=== PATIENT | male | born 1990 | race Caucasian/White ===

== ENCOUNTER 2016-05-25 19:08 | Emergency (ER) | payer OTHER ==
[2016-05-25] MEDS ORDERED: ASPIRIN 81 MG TABLET, CHEWABLE PO ONE (19:43)
--- NOTE | 2016-05-25 19:45 | ER Document Report ---
ED Medical Screen (RME) - General Stated Complaint: DIFFICULTY BREATHING Mode of Arrival: Ambulatory Information source: Patient Notes: Patient reports chest discomfort and difficulty breathing for the past 10 days. No cough. No fever. hx: Anxiety, depression I have greeted and performed a rapid initial assessment of this patient. A comprehensive ED assessment and evaluation of the patient, analysis of test results and completion of the medical decision making process will be conducted by additional ED providers. - Related Data Allergies/Adverse Reactions: No Known Allergies Allergy (Verified 05/25/16 19:44) Past Medical History - Immunizations Immunizations up to date: Yes Hx Diphtheria, Pertussis, Tetanus Vaccination: Yes Physical Exam - Vital signs Vitals: Temp Pulse Resp BP Pulse Ox 97.7 F 75 16 139/85 H 97 05/25/16 19:13 05/25/16 19:13 05/25/16 19:13 05/25/16 19:13 05/25/16 19:13 - Cardiovascular Rhythm: Regular Heart sounds: S1 appreciated, S2 appreciated Course - Vital Signs Vital signs: Temp Pulse Resp BP Pulse Ox 97.7 F 75 16 139/85 H 97 05/25/16 19:13 05/25/16 19:13 05/25/16 19:13 05/25/16 19:13 05/25/16 19:13
[2016-05-25 20:10] LABS: ABSOLUTE BASOPHILS # (AUTO) 0.1 10^3/uL (0.0-0.2); ABSOLUTE EOSINOPHILS # (AUTO) 0.1 10^3/uL (0.0-0.6); ABSOLUTE LYMPHOCYTES (AUTO) 2.8 10^3/uL (0.5-4.7); ABSOLUTE MONOCYTES (AUTO) 0.6 10^3/uL (0.1-1.4); ABSOLUTE NEUT (AUTO) 5.7 10^3/uL (1.7-8.2); BASOPHILS % (AUTO) 0.6 % (0-2); EOSINOPHILS % (AUTO) 1.5 % (0-6); HEMATOCRIT 48.7 % (37.9-51.0); HGB HCT DIFFERENCE 2.3; LYMPHOCYTES % (AUTO) 29.7 % (13-45); MEAN CORPUSCULAR HEMOGLOBIN 30.3 pg (27.0-33.4); MEAN CORPUSCULAR VOLUME 86 fl (80-97); MONOCYTES % (AUTO) 6.1 % (3-13); RED BLOOD COUNT 5.63 10^6/uL (4.35-5.55); RED CELL DISTRIBUTION WIDTH 13.2 % (11.5-14.0); SEGMENTED NEUTROPHILS % (AUTO) 62.1 % (42-78); WHITE BLOOD COUNT 9.3 10^3/uL (4.0-10.5)
[2016-05-25 20:15] LABS: APPEARANCE,URINE CLEAR; BILIRUBIN,URINE NEGATIVE (NEGATIVE); GLUCOSE, URINE NEGATIVE (NEGATIVE); KETONES,URINE TRACE mg/dL (NEGATIVE); LEUKOCYTE ESTERASE,URINE NEGATIVE (NEGATIVE); NITRITE,URINE NEGATIVE (NEGATIVE); PROTEIN,URINE NEGATIVE (NEGATIVE); URINE SPECIFIC GRAVITY 1.024; UROBILINOGEN,URINE NEGATIVE mg/dL (<2.0)
[2016-05-25 20:24] LABS: ALANINE AMINOTRANSFERASE 33 U/L (21-72); ALBUMIN 3.6 g/dL (3.5-5.0); ALKALINE PHOSPHATASE 85 U/L (38-126); ANION GAP 9 (5-19); ASPARTATE AMINO TRANSFERASE 21 U/L (17-59); BILIRUBIN,TOTAL 0.5 mg/dL (0.2-1.3); BLOOD UREA NITROGEN 17 mg/dL (7-20); CALCIUM 9.6 mg/dL (8.4-10.2); CARBON DIOXIDE 24 mmol/L (22-30); CHLORIDE 107 mmol/L (98-107); CREATINE KINASE 81 U/L (55-170); CREATININE RESULT 1.03 mg/dL (0.52-1.25); GLUCOSE 82 mg/dL (75-110); POTASSIUM 3.9 mmol/L (3.6-5.0); TOTAL PROTEIN 6.2 g/dL (6.3-8.2)
[2016-05-25 20:32] LABS: URINE BARBITURATES SCREEN NEGATIVE; URINE METHADONE SCREEN NEGATIVE; URINE OPIATES LOW NEGATIVE; URINE PHENCYCLIDINE SCREEN NEGATIVE
[2016-05-25 20:39] LABS: CREATINE KINASE MB 0.96 ng/mL (<4.55); TROPONIN I < 0.012 ng/mL
[2016-05-25] MEDS ORDERED: PREDNISONE 20 MG TABLET PO ONE (21:42)
[2016-05-25] MEDS ORDERED: IPRATROPIUM/ALBUTEROL 0.5-2.5 MG/3 ML AMPUL NEB ONE (21:42)
--- NOTE | 2016-05-25 21:44 | ER Document Report ---
ED Respiratory Problem - General Chief Complaint: Shortness Of Breath Stated Complaint: DIFFICULTY BREATHING Time seen by provider: 21:43 Mode of Arrival: Ambulatory Information source: Patient Notes: 26-year-old male presents to ED for shortness of breath and chest discomfort for the last 10 days. He states he has a history of asthma and his chest feels very tight and sore. He also is having some upper abdominal pain on the left states she's getting evaluated [facility] an ulcer [facility]. States this is not a problem tonight. TRAVEL OUTSIDE OF THE [place] IN LAST 30 DAYS: No - HPI Patient complains to provider of: Chest pain, Cough, Short of breath Onset: Other - 10 days Duration: Intermittent episodes Initiating Event: URI Quality of pain: Other - Sore to touch pain with cough Severity: Mild Pain Level: 2 Cough: Nonproductive Sputum amount: None Associated symptoms: Chest pain/discomfort, Cough, PND, Runny nose, Sinus pain/ pressure Similar symptoms previously: Yes Recently seen / treated by doctor: No - Related Data Allergies/Adverse Reactions: No Known Allergies Allergy (Verified 05/25/16 19:44) Past Medical History - General Information source: Patient - Social History Smoking Status: Current Some Day Smoker Cigarette use (# per day): Yes - occasionally Chew tobacco use (# tins/day): No Smoking Education Provided: Yes - less than 1 minute Frequency of alcohol use: Occasional Drug Abuse: Marijuana Occupation: none Lives with: Family Family History: CAD, Hypertension Patient has suicidal ideation: No Patient has homicidal ideation: No - Past Medical History Cardiac Medical History: Reports: None Pulmonary Medical History: Reports: None EENT Medical History: Reports: None Neurological Medical History: Reports: None Endocrine Medical History: Reports: None Renal/ Medical History: Reports: None Malignancy Medical History: Reports None GI Medical History: Reports: Hx Gastroesophageal Reflux Disease, Hx Ulcer Musculoskeltal Medical History: Reports Hx Musculoskeletal Deformity, Reports Hx Musculoskeletal Trauma Skin Medical History: Reports None Psychiatric Medical History: Reports: Hx Anxiety, Hx Depression Traumatic Medical History: Reports: None Infectious Medical History: Reports: None Past Surgical History: Reports: Hx Orthopedic Surgery - Right shoulder - Immunizations Immunizations up to date: Yes Hx Diphtheria, Pertussis, Tetanus Vaccination: Yes Review of Systems - Review of Systems Constitutional: Fever, Recent illness EENT: Nose discharge, Sinus discharge Cardiovascular: No symptoms reported Respiratory: Cough - States that he has coughed some Gastrointestinal: Nausea, Vomiting Genitourinary: No symptoms reported Male Genitourinary: No symptoms reported Musculoskeletal: Muscle pain Skin: No symptoms reported Hematologic/Lymphatic: No symptoms reported Neurological/Psychological: No symptoms reported -: Yes All other systems reviewed and negative Physical Exam - Vital signs Vitals: Temp Pulse Resp BP Pulse Ox 97.7 F 75 16 139/85 H 97 05/25/16 19:13 05/25/16 19:13 05/25/16 19:13 05/25/16 19:13 05/25/16 19:13 Interpretation: Normal - General General appearance: Appears well, Alert - HEENT Head: Normocephalic, Atraumatic Eyes: Normal Pupils: PERRL Ears: Normal External canal: Normal Tympanic membrane: Normal Sinus: Normal Nasal: Purulent discharge, Swelling Mouth/Lips: Normal Mucous membranes: Normal Pharynx: Post nasal drainage Neck: Normal - Respiratory Respiratory status: No respiratory distress Chest status: Tender. No: Pain on movement, Pain with cough, Pain with deep breathing Breath sounds: Normal Chest palpation: Normal - Cardiovascular Rhythm: Regular Heart sounds: Normal auscultation Murmur: No - Abdominal Inspection: Normal Distension: No distension Bowel sounds: Normal Tenderness: Nontender Organomegaly: No organomegaly - Back Back: Normal, Nontender - Extremities General upper extremity: Normal inspection, Nontender, Normal color, Normal ROM , Normal temperature General lower extremity: Normal inspection, Nontender, Normal color, Normal ROM , Normal temperature, Normal weight bearing. No: Kodak's sign - Neurological Neuro grossly intact: Yes Cognition: Normal Orientation: AAOx4 Ginger Coma Scale Eye Opening: Spontaneous [place] Coma Scale Verbal: Oriented [place] Coma Scale Motor: Obeys Commands Ginger Coma Scale Total: 15 Speech: Normal Motor strength normal: LUE, RUE, LLE, RLE Sensory: Normal - Psychological Associated symptoms: Normal affect, Normal mood - Skin Skin Temperature: Warm Skin Moisture: Dry Skin Color: Normal Course - Re-evaluation Re-evalutation: 05/26/16 07:58 Discussed chest x-ray and lab results with patient patient discharged home to follow-up with his primary doctor patient encouraged to use Tylenol or Motrin for his discomfort. Patient was given 1 DuoNeb with prednisone as stated that his discomfort was relieved stated he did not want to be albuterol DuoNeb she was ready to go home. Patient discharged home with prescriptions for prednisone and albuterol inhaler. - Vital Signs Vital signs: Temp Pulse Resp BP Pulse Ox 97.5 F 52 L 18 111/69 98 05/25/16 23:00 05/25/16 23:00 05/25/16 23:00 05/25/16 23:00 05/25/16 23:00 - Laboratory Result Diagrams: 05/25/16 19:50 05/25/16 19:50 Laboratory results interpreted by me: 05/25/16 05/25/16 05/25/16 19:50 19:50 19:50 RBC 5.63 H Total Protein 6.2 L Urine Ketones TRACE H - Diagnostic Test Radiology reviewed: Image reviewed, Reports reviewed Discharge - Discharge Clinical Impression: Chest pain Qualifiers: Chest pain type: unspecified Qualified Code(s): R07.9 - Chest pain, unspecified URI (upper respiratory infection) Qualifiers: URI type: unspecified URI Qualified Code(s): J06.9 - Acute upper respiratory infection, unspecified Condition: Stable Disposition: HOME, SELF-CARE Additional Instructions: UPPER RESPIRATORY ILLNESS: You have a viral infection of the respiratory passages -- a "cold." This common infection causes nasal congestion, drainage, and often sore throat and cough. It is highly contagious. The disease usually lasts about 10 to 14 days. There is no "cure" for the viral infection -- it must run its course. If there is a complication, such as bacterial infection in the nose, sinuses, middle ear, or bronchial tubes, antibiotics may be required. The antibiotics won't affect the virus. Drink plenty of fluids. A humidifier may help. An expectorant medication or decongestant may make you more comfortable. Use acetaminophen or ibuprofen for fever or aches. See the doctor if fever persists over two days, if there is any significant worsening of your symptoms, or if you simply fail to improve as expected. BRONCHOSPASM: You have tightness in the bronchial tubes, called bronchospasm. This often occurs with bronchial infections. Allergies, inhaled chemicals, and polluted or cold air can also provoke bronchospasm. It's more likely in patients with asthma in the family. Emergency treatment of bronchospasm may include adrenaline shots or bronchodilator aerosol. You may feel lightheaded and have a rapid pulse for an hour or two. Rest and get plenty of fluids. At home, we'll treat you with a bronchodilator inhaler. Antibiotics and corticosteroids may be required for some patients. Until you recover, avoid chemical fumes, dusts, pollens, and exercising in very cold or dry air. If you smoke, stop now!! If you develop a fever, increased wheezing, chest pain, or severe shortness of breath, you should contact the doctor immediately. CHEST PAIN OF UNCLEAR CAUSE: The exact cause of your chest pain isn't clear. Fortunately, there is no evidence of a dangerous medical condition. Further testing may be required to find the source of the pain. Most often, we find that this pain is coming from the chest wall -- the muscles or rib joints in the chest. But chest pain can come from the lung and lung lining, the esophagus, the heart valves or heart lining, and even the stomach or gallbladder. Rest. Eat lightly until the pain is gone. We may prescribe medicine for pain and inflammation. You should call the physician immediately if the pain radiates to the shoulder, jaw or arms; if you start to run a fever or develop a cough; or if you develop shortness of breath, or other new or alarming symptoms. NORMAL EXAM AND WORKUP: At this time, your examination and workup show no significant abnormality. No significant abnormal physical findings were noted. All laboratory, EKG, and imaging (x-ray, CT scans, ultrasound) studies that were ordered show no significant abnormality. Although your examination and all studies that were ordered showed no significant abnormal finding, there are no examinations and no studies that are 100% accurate. There is always the possibility that some abnormality could exist and not be detected with physical examination or within the limits and capabilities of laboratory and other studies. You should return or follow up as you were instructed on your visit today for further evaluation if your symptoms do not resolve. CHEST WALL PAIN: Your chest pain may be coming from the chest wall. This is often caused by straining the muscles or joints in the chest during physical activity, direct trauma, coughing, or vigorous vomiting. Persons with arthritis are especially prone to this type of pain, due to inflammation of the cartilage joints near the breast bone. Occasionally, no cause can be found. Rest from strenuous physical activity. This kind of chest pain is usually made worse by movement of the chest. Depending on the symptoms, we may prescribe medicine for pain, muscle relaxation, and antiinflammatory effects. If the pain is new, and seems to be due to muscle strain, cold packs can help. Otherwise, apply gentle warmth to the painful area for 15 minutes every hour or two. You should call contact the doctor immediately if things change. Further evaluation is needed if you develop a fever or cough, if the nature of the pain changes, or if you become short of breath. to swallow fluids, fever, or worsening symptoms. ASPIRIN: Aspirin has been shown to have a beneficial effect on blood circulation by reducing the clotting effect of platelets in the blood. These beneficial effects can be achieved by taking just a single baby (81 mg) aspirin a day. It is recommended that any person over the age of forty take a single baby aspirin every day for heart and brain circulation, unless you are allergic to aspirin or have some significant bleeding disorder. It is strongly recommended that people who have proven cardiac or blood circulation disturbances should take a baby aspirin every day. OUGH-SUPPRESSANT & EXPECTORANT MEDICATION: You are to use a cough medication as needed for relief of symptoms. This medicine is a combination of an expectorant (to make the mucous thinner and more easily "coughed up") and a cough suppressant (to reduce the frequency of coughing). The cough-suppressant medicine is related to narcotics. You may experience mild nausea and sleepiness. Some patients who are very sensitive to narcotics may have stomach pain from this medicine. Taking the medicine with food reduces these side effects. Do not drive or work with machinery until you know how this medicine affects you. The expectorant should have no side effects. Iodine-containing expectorants (such as organidin) should not be taken by persons with active thyroid disease unless approved by your doctor. Call the doctor if you develop shortness of breath, hives, rash, itching, lightheadedness, or severe nausea and vomiting. INHALED BRONCHODILATORS: You have received a treatment of and/or prescription for an inhaled bronchodilator -- a medication which stimulates the airways in the lung to dilate. This improves the flow of air in asthma, bronchitis, and emphysema. These medicines have some similarity to adrenaline, and can cause similar side effects: shakiness, racing heart, and a sense of nervousness. These side effects decrease with time. Contact your doctor if these side effects are severe. Do not over-use the medicine. Too-frequent use of the inhaler may make it ineffective. Call your doctor if the inhaler is not controlling your symptoms at the prescribed doses. STEROID MEDICATION: You have been given an injection of or oral medicine of the cortisone/ steroid class. This medication is used to control inflammation or allergy. Spenser t is usually only given for a short period of time, until the acute process subsides. There are usually no side effects from short-term use of cortisone-like medications. Some persons feel an increased sense of well-being and are not sleepy at bedtime. Long-term use of cortisone medications is best avoided, unless required for a severe condition. If your condition does not remit, or relapses after the course of corticosteroid medication, you should consult your physician. USE OF ACETAMINOPHEN (Tylenol): Acetaminophen may be taken for pain relief or fever control. It's much safer than aspirin, offering a wider range of "safe" dosages. It is safe during . Some brand names are Tylenol, Panadol, Datril, Anacin 3, Tempra, and Liquiprin. Acetaminophen can be repeated every four hours. The following are maximum recommended dosages: >89 pounds or adults 650 mg to 900 mg Acetaminophen can be repeated every four hours. Maximum dose not to exceed 4000 mg a day. SMOKING: If you smoke, you should stop smoking. The tar and chemicals in cigarette smoke are harmful. Smoking has been shown to cause: emphysema chronic bronchitis lung cancer mouth and throat cancer stomach and pancreas cancer premature aging defects In addition, smoking increases ear and lung infections in children of smokers. FOLLOW-UP CARE: If you have been referred to a physician for follow-up care, call the physician s office for an appointment as you were instructed or within the next two days. If you experience worsening or a significant change in your symptoms, notify the physician immediately or return to the Emergency Department at any time for re-evaluation. Prescriptions: Albuterol Sulfate [Proair HFA Inhalation Aerosol 8.5 gm MDI] 2 puff IH Q4H PRN # 1 mdi PRN Reason: Prednisone [Deltasone 20 mg Tablet] 3 tab PO DAILY 3 Days Forms: Elevated Blood Pressure, Smoking Cessation Education, Return to Work
[2016-05-25] MEDS ORDERED: ALBUTEROL SULFATE 0.083% NEB 2.5 MG/3 ML AMPUL NEB SCH (21:45)
--- NOTE | 2016-05-25 22:03 | EKG REPORT ---
SEVERITY:- ABNORMAL ECG - SINUS RHYTHM FIRST DEGREE AV BLOCK PROBABLE LEFT ATRIAL ABNORMALITY NONSPECIFIC INTRAVENTRICULAR CONDUCTION DELAY : Confirmed by: Alissa Villalobos MD 25-May-2016 22:02:23
[2016-05-25 23:01] VITALS: BP 111/69
== END 2016-05-25 23:00 | disposition home or self-care (01) ==
LOC: ER 19:08
DX: J06.9 Acute upper respiratory infection, unspecified (principal); R07.89 Other chest pain; R06.02 Shortness of breath; J45.909 Unspecified asthma, uncomplicated; R10.12 Left upper quadrant pain; R50.9 Fever, unspecified; R05 Cough; R11.2 Nausea with vomiting, unspecified; J34.89 Other specified disorders of nose and nasal sinuses; F17.210 Nicotine dependence, cigarettes, uncomplicated; Z71.6 Tobacco abuse counseling; Z87.19 Personal history of other diseases of the digestive system; Z82.49 Family history of ischemic heart disease and other diseases of the circulatory system
CPT/HCPCS: 93005; 94640; 99285; 36415; 82553; 85025; 82550; 80053; 84484; 81001; 80307; 71020; 93010; J7512; J7620

== ENCOUNTER 2017-03-27 18:26 | Emergency (ER) | payer OTHER ==
[2017-03-27 18:32] VITALS: BP 150/91
[2017-03-27] MEDS ORDERED: ALPRAZOLAM 0.5 MG TABLET PO ONE (18:42)
--- NOTE | 2017-03-27 18:46 | ER Document Report ---
ED General - General Chief Complaint: Anxiety Stated Complaint: PANIC ATTACK Time Seen by Provider: 03/27/17 18:42 Mode of Arrival: Ambulatory Information source: Patient Notes: 27 yr old male hx of panic attacks who states he has 2-3 a day on risperidone , zoloft presents with complaints of 6-7 panic attacks today. pt denies any suicidal homicidal ideations . pt unsure of whats causing his anxiety today. TRAVEL OUTSIDE OF THE [place] IN LAST 30 DAYS: No - HPI Onset: Other Onset/Duration: Intermittent Quality of pain: No pain Severity: Moderate Pain Level: Denies Associated symptoms: Other Exacerbated by: Denies Relieved by: Denies Similar symptoms previously: Yes Recently seen / treated by doctor: Yes - Patient seen new psychiatrist in the week - Related Data Allergies/Adverse Reactions: No Known Allergies Allergy (Verified 03/27/17 18:30) Past Medical History - Social History Smoking Status: Never Smoker Cigarette use (# per day): No Chew tobacco use (# tins/day): No Smoking Education Provided: No Frequency of alcohol use: None Drug Abuse: Marijuana Family History: CAD, Hypertension Patient has suicidal ideation: No Patient has homicidal ideation: No Renal/ Medical History: Denies: Hx Peritoneal Dialysis GI Medical History: Reports: Hx Gastroesophageal Reflux Disease, Hx Ulcer Musculoskeltal Medical History: Reports Hx Musculoskeletal Deformity, Reports Hx Musculoskeletal Trauma Psychiatric Medical History: Reports: Hx Anxiety, Hx Depression Past Surgical History: Reports: Hx Oral Surgery, Hx Orthopedic Surgery - Right shoulder - Immunizations Immunizations up to date: Yes Hx Diphtheria, Pertussis, Tetanus Vaccination: Yes Review of Systems - Review of Systems Notes: REVIEW OF SYSTEMS: CONSTITUTIONAL : Denies fever, chills, or sweats. Denies recent illness. EENT: Denies eye, ear, throat, or mouth pain or symptoms. Denies nasal or sinus congestion or discharge. Denies throat, tongue, or mouth swelling or difficulty swallowing. CARDIOVASCULAR: Denies chest pain. Denies palpitations or racing or irregular heart beat. Denies ankle edema. RESPIRATORY: Denies cough, cold, or chest congestion. Denies shortness of breath, difficulty breathing, or wheezing. GASTROINTESTINAL: Denies abdominal pain or distention. Denies nausea, vomiting , or diarrhea. Denies blood in vomitus, stools, or per rectum. Denies black, tarry stools. Denies constipation. GENITOURINARY: Denies difficulty urinating, painful urination, burning, frequency, blood in urine, or discharge. MUSCULOSKELETAL: Denies back or neck pain or stiffness. Denies joint pain or swelling. SKIN: Denies rash, lesions or sores. HEMATOLOGIC : Denies easy bruising or bleeding. LYMPHATIC: Denies swollen, enlarged glands. NEUROLOGICAL: Denies confusion or altered mental status. Denies passing out or loss of consciousness. Denies dizziness or lightheadedness. Denies headache. Denies weakness or paralysis or loss of use of either side. Denies problems with gait or speech. Denies sensory loss, numbness, or tingling. Denies seizures. PSYCHIATRIC: Admits to anxiety stress ALL OTHER SYSTEMS REVIEWED AND NEGATIVE. Dictation was performed using [employer] voice recognition software PHYSICAL EXAMINATION: GENERAL: Well-appearing, well-nourished and in no acute distress. HEAD: Atraumatic, normocephalic. EYES: Pupils equal round and reactive to light, extraocular movements intact, sclera anicteric, conjunctiva are normal. ENT: Nares patent, oropharynx clear without exudates. Moist mucous membranes. NECK: Normal range of motion, supple without lymphadenopathy LUNGS: Breath sounds clear to auscultation bilaterally and equal. No wheezes rales or rhonchi. HEART: Regular rate and rhythm without murmurs ABDOMEN: Soft, nontender, nondistended abdomen. No guarding, no rebound. No masses appreciated. Musculoskeletal: Normal range of motion, no pitting or edema. No cyanosis. NEUROLOGICAL: Cranial nerves grossly intact. Normal speech, normal gait. Normal sensory, motor exams PSYCH: Patient is tearful SKIN: Warm, Dry, normal turgor, no rashes or lesions noted. Physical Exam - Vital signs Vitals: Temp Pulse Resp BP Pulse Ox 97.7 F 77 20 150/91 H 100 03/27/17 18:31 03/27/17 18:31 03/27/17 18:31 03/27/17 18:31 03/27/17 18:31 Course - Re-evaluation Re-evalutation: 03/27/17 18:45 Patient's presentation is consistent with a panic attack, he will be treated with Xanax, patient understands risks and benefits of these medications including addiction After performing a Medical Screening Examination, I estimate there is LOW risk for any life threatening mental health issues. At this time the patient looks extremely well and has not attempted severe self harm. I have reevaluated this patient multiple times and no significant life threatening changes are noted. The patient and I have discussed the diagnosis and risks, and we agree with discharging home with close follow-up with the understanding that symptoms and presentations can change. We also discussed returning to the Emergency Department immediately if new or worsening symptoms occur. We have discussed the symptoms which are most concerning (hallucinations, thoughts or actions of self harm or harm to others) that necessitate immediate return. - Vital Signs Vital signs: Temp Pulse Resp BP Pulse Ox 97.7 F 77 20 150/91 H 100 03/27/17 18:31 03/27/17 18:31 03/27/17 18:31 03/27/17 18:31 03/27/17 18:31 Discharge - Discharge Clinical Impression: Panic attack Condition: Stable Disposition: HOME, SELF-CARE Instructions: Anxiety ([facility]) Additional Instructions: Follow up with your physician tomorrow for further care or return to the ED IMMEDIATELY if symptoms worsen or new concerns occur. If you cannot afford to follow up with your primary care physician a list of low cost clinics have been provided at the end of your discharge papers as well. Prescriptions: Alprazolam [Xanax 0.5 mg Tablet] 0.5 mg PO Q6HP PRN #20 tab PRN Reason:
== END 2017-03-27 18:53 | disposition home or self-care (01) ==
LOC: ER 18:26
DX: F41.0 Panic disorder [episodic paroxysmal anxiety] (principal); Z79.899 Other long term (current) drug therapy
CPT/HCPCS: 99283

== ENCOUNTER 2017-05-05 19:24 | Emergency (ER) | payer OTHER ==
[2017-05-05 20:27] LABS: ABSOLUTE LYMPHOCYTES (AUTO) 2.3 10^3/uL (0.5-4.7); ABSOLUTE MONOCYTES (AUTO) 0.4 10^3/uL (0.1-1.4); ABSOLUTE NEUT (AUTO) 4.8 10^3/uL (1.7-8.2); BASOPHILS % (AUTO) 0.3 % (0-2); EOSINOPHILS % (AUTO) 0.4 % (0-6); HEMATOCRIT 51.5 % (37.9-51.0); HEMOGLOBIN 17.9 g/dL (13.5-17.0); LYMPHOCYTES % (AUTO) 30.2 % (13-45); MEAN CORPUSCULAR HEMOGLOBIN 30.1 pg (27.0-33.4); MEAN CORPUSCULAR HGB CONC 34.7 g/dL (32.0-36.0); MEAN CORPUSCULAR VOLUME 87 fl (80-97); MONOCYTES % (AUTO) 5.5 % (3-13); PLATELET COUNT 190 10^3/uL (150-450); RED BLOOD COUNT 5.94 10^6/uL (4.35-5.55); RED CELL DISTRIBUTION WIDTH 13.2 % (11.5-14.0); SEGMENTED NEUTROPHILS % (AUTO) 63.6 % (42-78); TOTAL CELLS COUNTED % (AUTO) 100 %; WHITE BLOOD COUNT 7.5 10^3/uL (4.0-10.5)
[2017-05-05 20:49] LABS: ALANINE AMINOTRANSFERASE 29 U/L (21-72); ALBUMIN 4.6 g/dL (3.5-5.0); ALKALINE PHOSPHATASE 75 U/L (38-126); ANION GAP 10 (5-19); ASPARTATE AMINO TRANSFERASE 20 U/L (17-59); BILIRUBIN,DIRECT 0.4 mg/dL (0.0-0.4); BILIRUBIN,TOTAL 0.7 mg/dL (0.2-1.3); BLOOD UREA NITROGEN 14 mg/dL (7-20); CALCIUM 9.9 mg/dL (8.4-10.2); CARBON DIOXIDE 24 mmol/L (22-30); CHLORIDE 106 mmol/L (98-107); GLUCOSE 94 mg/dL (75-110); POTASSIUM 3.6 mmol/L (3.6-5.0); SODIUM 140.1 mmol/L (137-145)
[2017-05-05 20:50] LABS: ACETAMINOPHEN < 10 ug/mL (10-30); ALCOHOL < 10 mg/dL (NONE DETECTED); SALICYLATE < 1.0 mg/dL (2.0-20.0)
--- NOTE | 2017-05-05 21:45 | ER Document Report ---
ED Psych Disorder / Suicide - General Mode of Arrival: Ambulatory Information source: Patient TRAVEL OUTSIDE OF THE U.S. IN LAST 30 DAYS: No <JEANNETTE MCCAIN - Last Filed: 05/06/17 00:26> <MEÑO MATIAS - Last Filed: 05/06/17 01:51> - General Chief Complaint: Suicidal Ideation Stated Complaint: PSYCH PROBLEM Time Seen by Provider: 05/05/17 19:43 Notes: Patient is a 27 year old male that presents to the emergency department today with complaints of "not feeling like myself". Patient states he has PTSD, depression, and anxiety. Patient states his risperidone was recently changed from 1/2 a pill in the morning and a 1/2 a pill at night to 1 pill once a day. Patient mentions that his parents want him to move back home to [place], stating his brother recently committed suicide. Patient denies any suicidal ideation currently and states he does not have a plan. (JEANNETTE MCCAIN) - Related Data Allergies/Adverse Reactions: No Known Allergies Allergy (Verified 05/05/17 19:30) Past Medical History - General Information source: Patient - Social History Smoking Status: Former Smoker Cigarette use (# per day): No Frequency of alcohol use: None Drug Abuse: None Lives with: Family Family History: Reviewed & Not Pertinent, CAD, Hypertension GI Medical History: Reports: Hx Gastroesophageal Reflux Disease, Hx Ulcer Musculoskeltal Medical History: Reports Hx Musculoskeletal Deformity, Reports Hx Musculoskeletal Trauma Psychiatric Medical History: Reports: Hx Anxiety, Hx Depression, Hx Post Traumatic Stress Disorder Past Surgical History: Reports: Hx Oral Surgery, Hx Orthopedic Surgery - Right shoulder - Immunizations Immunizations up to date: Yes Hx Diphtheria, Pertussis, Tetanus Vaccination: Yes <JEANNETTE MCCAIN - Last Filed: 05/06/17 00:26> Review of Systems - Review of Systems Constitutional: No symptoms reported EENT: No symptoms reported Cardiovascular: No symptoms reported Respiratory: No symptoms reported Gastrointestinal: No symptoms reported Genitourinary: No symptoms reported Male Genitourinary: No symptoms reported Musculoskeletal: No symptoms reported Skin: No symptoms reported Hematologic/Lymphatic: No symptoms reported Neurological/Psychological: See HPI, Anxiety, Other - restless -: Yes All other systems reviewed and negative <JEANNETTE MCCAIN - Last Filed: 05/06/17 00:26> Physical Exam <JEANNETTE MCCAIN - Last Filed: 05/06/17 00:26> <MEÑO MATIAS - Last Filed: 05/06/17 01:51> - Vital signs Vitals: Temp Pulse Resp BP Pulse Ox 98.2 F 90 14 150/85 H 98 05/05/17 19:38 05/05/17 19:38 05/05/17 19:38 05/05/17 19:38 05/05/17 19:38 - Notes Notes: Physical Exam: General: Alert. HEENT: Normocephalic. Atraumatic. PERRL. Extraocular movements intact. Oropharynx clear. Neck: Supple. Non-tender. Respiratory: No respiratory distress. Clear and equal breath sounds bilaterally. Cardiovascular: Regular rate and rhythm. Abdominal: Normal Inspection. Non-tender. No distension. Normal Bowel Sounds. Back: Non-tender. No deformity or step off. Extremities: Moves all four extremities. Upper extremities: Normal inspection. Normal ROM. Lower extremities: Normal inspection. No edema. Normal ROM. Neurological: Normal cognition. AAOx4. Normal speech. Psychological: Anxious. Restless. Psychomotor agitation. Skin: Warm. Dry. Normal color. (JEANNETTE MCCAIN) Course - Laboratory Result Diagrams: 05/05/17 20:11 05/05/17 20:11 <JEANNETTE MCCAIN - Last Filed: 05/06/17 00:26> - Laboratory Result Diagrams: 05/05/17 20:11 05/05/17 20:11 <MEÑO MATIAS - Last Filed: 05/06/17 01:51> - Re-evaluation Re-evalutation: 05/06/17 Patient is a 27-year-old male who comes in with suicidal ideation at home. Patient has not had a plan. He states that he is not suicidal right now. Patient states that he had changes to his medications recently including adding Cogentin and decreasing risperidone. is present in room. There are no weapons at home. She is not worried that the patient will hurt himself at home and is willing to contract for his safety. Blood work within normal limits except for slightly elevated TSH. Patient has been given a copy of his blood work. He feels better after a small dose of risperidone. He is not suicidal or homicidal. He is safe to go home at this time. Return immediately if any worsening or concerning symptoms. Patient will follow up with his mental health provider in the morning. will bring him back immediately if he has any worsening or concerning symptoms suicidal ideation or she has any further concerns. At the time of discharge, patient is not anxious. He is pleasant, he has insight, and a rational thought process. (MEÑO MATIAS) - Vital Signs Vital signs: Temp Pulse Resp BP Pulse Ox 97.5 F 62 20 137/84 H 99 05/05/17 23:56 05/05/17 23:56 05/05/17 23:56 05/05/17 23:56 05/05/17 23:56 - Laboratory Laboratory results interpreted by me: 05/05/17 05/05/17 05/05/17 20:11 20:11 20:11 RBC 5.94 H Hgb 17.9 H Hct 51.5 H TSH 8.75 H Salicylates < 1.0 L Acetaminophen < 10 L Discharge <JEANNETTE MCCAIN - Last Filed: 05/06/17 00:26> <MEÑO MATIAS - Last Filed: 05/06/17 01:51> - Discharge Clinical Impression: Suicidal ideation, Anxiety Hypothyroidism Qualifiers: Hypothyroidism type: unspecified Qualified Code(s): E03.9 - Hypothyroidism, unspecified Condition: Stable Disposition: HOME, SELF-CARE Instructions: Anxiety ([facility]), Hypothyroidism ([facility]), Suicidal Ideation ([facility]) Additional Instructions: Please follow-up with your mental health provider in the morning. Please take a copy of your blood work with you to your mental health care provider. Please also follow-up with your primary care doctor regarding your hypothyroidism. Scribe Attestation: 05/06/17 01:51 I personally performed the services described in the documentation, reviewed and edited the documentation which was dictated to the scribe in my presence, and it accurately records my words and actions. (MEÑO MATIAS) Scribe Documentation - Scribe Written by Joseph:: Joseph Yap, 05/06/2017 0055 acting as scribe for :: Erika <JEANNETTE MCCAIN - Last Filed: 05/06/17 00:26>
[2017-05-05] MEDS ORDERED: RISPERIDONE 0.25 MG TABLET PO ONE (21:54)
[2017-05-06 00:52] VITALS: BP 137/84
--- NOTE | 2017-05-06 08:05 | EKG REPORT ---
SEVERITY:- ABNORMAL ECG - SINUS RHYTHM NONSPECIFIC INTRAVENTRICULAR CONDUCTION DELAY : Confirmed by: Vladimir Mccurdy MD 06-May-2017 08:04:33
== END 2017-05-05 23:56 | disposition home or self-care (01) ==
LOC: ER 19:24
DX: R45.851 Suicidal ideations (principal); E03.9 Hypothyroidism, unspecified; F41.9 Anxiety disorder, unspecified; F43.10 Post-traumatic stress disorder, unspecified; Z87.891 Personal history of nicotine dependence
CPT/HCPCS: 93005; 99285; 36415; 80307 ×3; 82550; 84443; 85025; 80053; 93010; J3490

== ENCOUNTER 2017-05-06 14:37 | Emergency (ER) | payer OTHER ==
--- NOTE | 2017-05-06 15:29 | ER Document Report ---
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 Patient states that he suffers from PTSD. Was 4 years in the [employer]. Experienced trauma and combat related stress. Has been admitted to mental health for alpha at [facility] in the past. States that he feels like he wants to drive his car into a pole and kill himself with patient's brother committed suicide in December 2016. I have greeted and performed a rapid initial assessment of this patient. A comprehensive ED assessment and evaluation of the patient, analysis of test results and completion of the medical decision making process will be conducted by additional ED providers. TRAVEL OUTSIDE OF THE U.S. IN LAST 30 DAYS: No - Related Data Allergies/Adverse Reactions: No Known Allergies Allergy (Verified 05/05/17 19:30) Past Medical History - Social History Chew tobacco use (# tins/day): No Frequency of alcohol use: None Drug Abuse: Marijuana Renal/ Medical History: Denies: Hx Peritoneal Dialysis GI Medical History: Reports: Hx Gastroesophageal Reflux Disease, Hx Ulcer Musculoskeltal Medical History: Reports Hx Musculoskeletal Deformity, Reports Hx Musculoskeletal Trauma Psychiatric Medical History: Reports: Hx Anxiety, Hx Depression - PTSD, Hx Post Traumatic Stress Disorder Past Surgical History: Reports: Hx Oral Surgery, Hx Orthopedic Surgery - Right shoulder - Immunizations Immunizations up to date: Yes Hx Diphtheria, Pertussis, Tetanus Vaccination: Yes Physical Exam - Vital signs Vitals: Temp Pulse Resp BP Pulse Ox 98.4 F 75 20 132/64 H 96 05/06/17 14:43 05/06/17 14:43 05/06/17 14:43 05/06/17 14:43 05/06/17 14:43 Course - Vital Signs Vital signs: Temp Pulse Resp BP Pulse Ox 98.4 F 75 20 132/64 H 96 05/06/17 14:43 05/06/17 14:43 05/06/17 14:43 05/06/17 14:43 05/06/17 14:43
[2017-05-06 16:11] LABS: ABSOLUTE LYMPHOCYTES (AUTO) 2.5 10^3/uL (0.5-4.7); ABSOLUTE MONOCYTES (AUTO) 0.4 10^3/uL (0.1-1.4); ABSOLUTE NEUT (AUTO) 4.9 10^3/uL (1.7-8.2); BASOPHILS % (AUTO) 0.2 % (0-2); EOSINOPHILS % (AUTO) 0.3 % (0-6); HEMATOCRIT 49.7 % (37.9-51.0); HEMOGLOBIN 17.1 g/dL (13.5-17.0); LYMPHOCYTES % (AUTO) 32.1 % (13-45); MEAN CORPUSCULAR HEMOGLOBIN 30.1 pg (27.0-33.4); MEAN CORPUSCULAR HGB CONC 34.5 g/dL (32.0-36.0); MEAN CORPUSCULAR VOLUME 87 fl (80-97); MONOCYTES % (AUTO) 4.9 % (3-13); PLATELET COUNT 186 10^3/uL (150-450); RED BLOOD COUNT 5.69 10^6/uL (4.35-5.55); RED CELL DISTRIBUTION WIDTH 13.3 % (11.5-14.0); SEGMENTED NEUTROPHILS % (AUTO) 62.5 % (42-78); TOTAL CELLS COUNTED % (AUTO) 100 %; WHITE BLOOD COUNT 7.8 10^3/uL (4.0-10.5)
[2017-05-06 16:21] LABS: APPEARANCE,URINE CLEAR; BILIRUBIN,URINE NEGATIVE (NEGATIVE); COLOR,URINE YELLOW; GLUCOSE, URINE NEGATIVE (NEGATIVE); KETONES,URINE NEGATIVE (NEGATIVE); LEUKOCYTE ESTERASE,URINE TRACE (NEGATIVE); NITRITE,URINE NEGATIVE (NEGATIVE); PROTEIN,URINE NEGATIVE (NEGATIVE); URINE SPECIFIC GRAVITY 1.024; UROBILINOGEN,URINE NEGATIVE mg/dL (<2.0)
[2017-05-06 16:26] LABS: ALANINE AMINOTRANSFERASE 34 U/L (21-72); ALBUMIN 4.6 g/dL (3.5-5.0); ALKALINE PHOSPHATASE 75 U/L (38-126); ANION GAP 10 (5-19); ASPARTATE AMINO TRANSFERASE 19 U/L (17-59); BILIRUBIN,DIRECT 0.3 mg/dL (0.0-0.4); BILIRUBIN,TOTAL 1.1 mg/dL (0.2-1.3); BLOOD UREA NITROGEN 17 mg/dL (7-20); CALCIUM 10.1 mg/dL (8.4-10.2); CARBON DIOXIDE 28 mmol/L (22-30); CHLORIDE 105 mmol/L (98-107); GLUCOSE 78 mg/dL (75-110); SODIUM 142.5 mmol/L (137-145)
[2017-05-06 16:32] LABS: ACETAMINOPHEN < 10 ug/mL (10-30); ALCOHOL < 10 mg/dL (NONE DETECTED); SALICYLATE < 1.0 mg/dL (2.0-20.0)
[2017-05-06 16:34] LABS: URINE AMPHETAMINES SCREEN NEGATIVE; URINE BARBITURATES SCREEN NEGATIVE; URINE BENZODIAZEPINES SCREEN NEGATIVE; URINE COCAINE SCREEN NEGATIVE; URINE MARIJUANA (THC) SCREEN UNCONFIRMED POSITIVE; URINE METHADONE SCREEN NEGATIVE; URINE PHENCYCLIDINE SCREEN NEGATIVE
[2017-05-06 16:37] LABS: POTASSIUM 4.6 mmol/L (3.6-5.0)
[2017-05-06] MEDS ORDERED: OLANZAPINE 5 MG TAB.RAPDIS PO ONE (17:26)
[2017-05-06] MEDS: BUSPIRONE HCL 10 MG TABLET PO SCH (18:08)
[2017-05-06] MEDS: VENLAFAXINE HCL 37.5 MG CAP.SR.24H PO SCH (18:08)
--- NOTE | 2017-05-06 18:31 | EKG REPORT ---
SEVERITY:- ABNORMAL ECG - SINUS RHYTHM POOR R WAVE PROGRESSION ANTERIOR PRECORDIAL LEAD, LEAD PLACEMENT ERROR OR OLD ANTERIR IA : Confirmed by: Vladimir Mccurdy MD 06-May-2017 18:31:08
[2017-05-06] MEDS: CLONIDINE HCL 0.1 MG TABLET PO SCH (22:51)
--- NOTE | 2017-05-07 00:23 | ER Document Report ---
ED General - General Chief Complaint: Suicidal Ideation Stated Complaint: PHSYC PROBLEM Time Seen by Provider: 05/06/17 15:17 TRAVEL OUTSIDE OF THE U.S. IN LAST 30 DAYS: No - HPI Patient complains to provider of: Suicidal ideation hallucinations Notes: Patient coming in [facility] patient expressing suicidal thoughts. Patient states ongoing for quite some time however recently lost a loved one to suicide patient states since that time his mental illness has increased. Patient resting comfortably however he is ringing his hands looks to be slightly anxious upon evaluation denies any other medical history. Patient states he is on a lot of psychiatric medications patient is present with his [facility] paperwork which will be reviewed. Denies any fevers chills nausea vomiting diarrhea. Patient denies a plan at this time. - Related Data Allergies/Adverse Reactions: No Known Allergies Allergy (Verified 05/05/17 19:30) Past Medical History - Social History Smoking Status: Former Smoker Chew tobacco use (# tins/day): No Frequency of alcohol use: None Drug Abuse: Marijuana Family History: Reviewed & Not Pertinent, CAD, Hypertension Patient has suicidal ideation: Yes Patient has homicidal ideation: No Renal/ Medical History: Denies: Hx Peritoneal Dialysis GI Medical History: Reports: Hx Gastroesophageal Reflux Disease, Hx Ulcer Musculoskeltal Medical History: Reports Hx Musculoskeletal Deformity, Reports Hx Musculoskeletal Trauma Psychiatric Medical History: Reports: Hx Anxiety, Hx Depression - PTSD, Hx Post Traumatic Stress Disorder Past Surgical History: Reports: Hx Oral Surgery, Hx Orthopedic Surgery - Right shoulder - Immunizations Immunizations up to date: Yes Hx Diphtheria, Pertussis, Tetanus Vaccination: Yes Review of Systems - Review of Systems Constitutional: No symptoms reported EENT: No symptoms reported Cardiovascular: No symptoms reported Respiratory: No symptoms reported Gastrointestinal: No symptoms reported Genitourinary: No symptoms reported Male Genitourinary: No symptoms reported Musculoskeletal: No symptoms reported Skin: No symptoms reported Hematologic/Lymphatic: No symptoms reported Neurological/Psychological: Hallucinations, Suicidal ideation -: Yes All other systems reviewed and negative Physical Exam - Vital signs Vitals: Temp Pulse Resp BP Pulse Ox 98.4 F 75 20 132/64 H 96 05/06/17 14:43 05/06/17 14:43 05/06/17 14:43 05/06/17 14:43 05/06/17 14:43 Interpretation: Normal - General General appearance: Appears well, Alert - HEENT Head: Normocephalic, Atraumatic Eyes: Normal Pupils: PERRL - Respiratory Respiratory status: No respiratory distress Chest status: Nontender Breath sounds: Normal Chest palpation: Normal - Cardiovascular Rhythm: Regular Heart sounds: Normal auscultation Murmur: No - Abdominal Inspection: Normal Distension: No distension Bowel sounds: Normal Tenderness: Nontender Organomegaly: No organomegaly - Back Back: Normal, Nontender - Extremities General upper extremity: Normal inspection, Nontender, Normal color, Normal ROM , Normal temperature General lower extremity: Normal inspection, Nontender, Normal color, Normal ROM , Normal temperature, Normal weight bearing. No: Kodak's sign - Neurological Neuro grossly intact: Yes Cognition: Normal Orientation: AAOx4 [place] Coma Scale Eye Opening: Spontaneous Ginger Coma Scale Verbal: Oriented [place] Coma Scale Motor: Obeys Commands [place] Coma Scale Total: 15 Speech: Normal Motor strength normal: LUE, RUE, LLE, RLE Sensory: Normal - Psychological Associated symptoms: Anxious - Skin Skin Temperature: Warm Skin Moisture: Dry Skin Color: Normal Course - Re-evaluation Re-evalutation: 05/07/17 00:22 Laboratory values reviewed and negative patient medically cleared for psychiatric evaluation - Vital Signs Vital signs: Temp Pulse Resp BP Pulse Ox 98.0 F 76 18 128/62 H 99 05/06/17 22:45 05/06/17 22:45 05/06/17 22:45 05/06/17 22:45 05/06/17 22:45 - Laboratory Result Diagrams: 05/06/17 15:45 05/06/17 15:45 Laboratory results interpreted by me: 05/06/17 05/06/17 05/06/17 15:45 15:45 15:45 RBC 5.69 H Hgb 17.1 H Ur Leukocyte Esterase TRACE H Salicylates < 1.0 L Acetaminophen < 10 L Discharge - Discharge Condition: Good Disposition: PSYCH HOSP/UNIT
--- NOTE | 2017-05-07 09:31 | ER Document Report ---
Doctor's Note Notes: 05/07/17 09:30 27-year-old male with past medical history of depression on psychiatric medications [facility] who was [facility] by the [facility] with [facility] secondary to some increased suicidal ideations after a left one recently committed suicide. Labs as recorded. Vital signs are stable. We are awaiting psychiatry evaluation. Patient is currently calm and cooperative at this time.
[2017-05-07] MEDS: OLANZAPINE 2.5 MG TABLET PO SCH ×2 (11:00→18:43)
[2017-05-07] MEDS: VENLAFAXINE HCL 37.5 MG CAP.SR.24H PO SCH ×2 (11:00→18:44)
[2017-05-07] MEDS: BENZTROPINE MESYLATE 1 MG TABLET PO SCH (11:00)
[2017-05-07] MEDS: BUSPIRONE HCL 10 MG TABLET PO SCH ×2 (11:00→18:43)
[2017-05-07] MEDS: CLONIDINE HCL 0.1 MG TABLET PO SCH ×2 (11:00→22:35)
--- NOTE | 2017-05-07 16:47 | PSYCHOLOGICAL NOTE ---
Psych Note - Psych Note Psych Note: Reason for Consult: IVC Consent Permissions: Bridgett Ford, , Patient coming in on IVC paperwork from the [facility] patient expressing suicidal thoughts. Patient states ongoing for quite some time however recently lost a loved one to suicide patient states since that time his mental illness has increased. Patient resting comfortably however he is ringing his hands looks to be slightly anxious upon evaluation denies any other medical history. Patient states he is on a lot of psychiatric medications patient is present with his [facility] paperwork which will be reviewed. Patient denies a plan at this time. Patient presented to [facility] via [facility] because "I want to kill myself...I was thinking about driving into a tree." Patient disclosed that he has been thinking of this for approximately 2-3 days. 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 Patient denies any previous attempts. 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 He disclosed that this is been very difficult for him to handle. Patient stated that he came last night to [facility] ED started feeling better and was discharged. He reports that when he woke up this morning he felt worse. Patient reports he does have visual hallucinations "I see people from [place]." Patient states that this is very sporadic and can sometimes have months go by without seeing them. Patient states he sees them in color. He continued disclosed "I also started seeing a shadow on the corner of my eye over the last 2 weeks since they changed my risperidone." Patient reports he has had difficulty sleeping, while he falls asleep quickly he does not stay asleep. He reports that he wakes up approximately twice and each time he is up for approximately 1 hour. He states his has told him that he does sometimes yell in a sleep however he states that he does not ever remember doing that. Patient reports difficulty in concentrating "midway through a sentence I can forget everything that I was talking about." Patient receives outpatient mental health services through the [facility]. He disclosed he has diagnosis of PTSD, anxiety, and depression. He is unable to provide his medications because "my sets them out for me." Clinician spoke with Bridgett, patient's , she disclosed the patient has been very depressed. She reports this started a few days ago "he tries to hide it." She reports that he has verbalized that he is been thinking about hurting himself but denied having a plan last night. She reports the patient takes trazodone, Prozac, Cogentin, risperidone, and prazosin. 311 (F32.9) unspecified depressive disorder per history provided by patient 300.00 (F41.9) unspecified anxiety disorder per history provided by patient 309.81 (F43.10) posttraumatic stress disorder per history provided by patient Impression\\plan: Patient is recommended to continue under IVC. Patient discloses recent medication changes in addition to recent suicide of his biological brother. Patient reports suicidal ideation starting approximately 2 days ago that has escalated to involving a plan of driving into a tree today. Patient medication recommendations per [facility] contracted psychiatrist are as follows: Clonidine 0.1 mg nightly, Cogentin 1 mg daily, Effexor 37.5 mg twice daily, BuSpar 10 mg twice daily, and Zyprexa 2.5 mg twice daily. Patient will be reevaluated. 2 nightly daily twice a day Dr. Rodriguez was consulted on the care and management of this patient; attending physician is in agreement with recommendations and disposition.
--- NOTE | 2017-05-07 16:54 | PSYCHOLOGICAL NOTE ---
Psych Note - Psych Note Psych Note: Reason for Consult: IVC Consent Permissions: Bridgett Ford, , Patient coming in on IVC paperwork from the [facility] patient expressing suicidal thoughts. Patient states ongoing for quite some time however recently lost a loved one to suicide patient states since that time his mental illness has increased. Patient resting comfortably however he is ringing his hands looks to be slightly anxious upon evaluation denies any other medical history. Patient states he is on a lot of psychiatric medications patient is present with his [facility] paperwork which will be reviewed. Patient denies a plan at this time. Checking conducted: Patient states he is feeling "a little better" today. He continued to state that he still having a difficult time with thoughts of suicide however denies having any hallucinations. Patient is alert and orientated to person, place, time and circumstance. Mood is anxious with psychomotor agitation patient is observed with his arms crossed in front of his chest. Patient's hands or gripping his opposite biceps. Patient is rocking. Patient has restricted affect. Patient endorses suicidal ideation with plan. Patient denies homicidal ideation. Patient endorses sporadic visual hallucinations. Delusions are absent and behaviors congruent with intact reality based presentation i.e. organized, linear, rational thinking. Eye contact is fair. Conversational speech is low. Intellectual abilities appear to be within the average range. Attention and concentration are fair. Insight, judgment, impulse control are fair. 311 (F32.9) unspecified depressive disorder per history provided by patient 300.00 (F41.9) unspecified anxiety disorder per history provided by patient 309.81 (F43.10) posttraumatic stress disorder per history provided by patient Impression\\plan: Patient is recommended to continue under IVC. Patient discloses recent medication changes in addition to recent suicide of his biological brother. Patient reports suicidal ideation starting approximately 2 days ago that has escalated to involving a plan of driving into a tree today. Patient medication recommendations per [facility] contracted psychiatrist are as follows: Clonidine 0.1 mg nightly, Cogentin 1 mg daily, Effexor 37.5 mg twice daily, BuSpar 10 mg twice daily, and Zyprexa 2.5 mg twice daily. Patient will be reevaluated. Dr. Rodriguez was consulted on the care and management of this patient; attending physician is in agreement with recommendations and disposition.
[2017-05-08] MEDS ORDERED: OLANZAPINE INJ/PF 10 MG SDV IM ONE (10:32)
[2017-05-08] MEDS: BUSPIRONE HCL 10 MG TABLET PO SCH (10:41)
[2017-05-08] MEDS: BENZTROPINE MESYLATE 1 MG TABLET PO SCH (10:41)
[2017-05-08] MEDS: VENLAFAXINE HCL 37.5 MG CAP.SR.24H PO SCH (10:41)
--- NOTE | 2017-05-08 13:04 | PSYCHOLOGICAL NOTE ---
Psych Note - Psych Note Psych Note: Reason for Consult: IVC Consent Permissions: Bridgett Ford, , Patient requested to speak with mental health team. This paste mixer attended patient in his room. Patient stated he wanted to go home. This paste mixer explained the patient remained under IVC and the mental health team had determined he was to be transported to [place] for inpatient treatment at the [facility]. Patient became visibly upset and agitated. Patient began shaking, crying and clenched and unclenched his hands while rubbing them together. Patient stated he didn't want to go to [place] because it was "too far away." The patient stated he has not been out of his house in the last few months and just being in this Emergency Department was increasing his anxiety. Treatment plan was explained to the patient who continues to evidence increased agitation and anxiety and repeat he does not want to go to treatment. Medication recommendation from contracted [facility] psychiatrist is Zyprexa 10 mg IM as a one time dose for agitation and anxiety. 1. 311 (F32.9) Unspecified Depressive Disorder, per history provided by patient 2. 300.00 (F41.9) Unspecified Anxiety Disorder, per history provided by patient 3. 309.81 (F43.10) Posttraumatic Stress Disorder, per history provided by patient Impression\\plan: Patient is recommended to continue under IVC. Patient discloses recent medication changes in addition to recent suicide of his biological brother. Patient reports suicidal ideation starting approximately 3 days ago that has escalated to involving a plan of driving into a tree yesterday. Patient medication recommendations per [facility] contracted psychiatrist are as follows: Clonidine 0.1 mg nightly, Cogentin 1 mg daily, Effexor 37.5 mg twice daily, BuSpar 10 mg twice daily, and Zyprexa 2.[address] Rodriguez was consulted on the care and management of this patient; attending physician is in agreement with recommendations and disposition.
[2017-05-08 13:43] VITALS: BP 107/62
== END 2017-05-08 15:33 ==
LOC: ER 14:37
DX: R45.851 Suicidal ideations (principal); F43.10 Post-traumatic stress disorder, unspecified; F32.9 Major depressive disorder, single episode, unspecified; F41.9 Anxiety disorder, unspecified
CPT/HCPCS: 93005; 99285; 96372; 36415; 80307 ×4; 85025; 80053; 81001; 93010; J3490 ×5